=== PATIENT | female | born 1965 | race Caucasian/White ===

== ENCOUNTER 2018-07-07 22:26 | Emergency (ER) | payer OTHER ==
[~2018-07-07] VITALS: Ht 157.5 cm; Wt 78.5 kg
[2018-07-07] MEDS ORDERED: ATENOLOL 50MG T50 M1 PO (22:49)
[2018-07-07] MEDS ORDERED: NOLVADEX20 MG PO (22:49)
[2018-07-07] MEDS ORDERED: METFORMIN HCL500 MG PO (22:50)
[2018-07-07] MEDS ORDERED: PRINIVIL20 MG PO (22:50)
[2018-07-08 01:15] VITALS: BP 113/66
[2018-07-08] MEDS ORDERED: ANTIVERT25 MG PO (01:20)
== END 2018-07-08 01:34 | disposition home or self-care (01) ==
LOC: ER 22:26
DX: R42 Dizziness and giddiness (principal); R11.10 Vomiting, unspecified; I10 Essential (primary) hypertension; E11.9 Type 2 diabetes mellitus without complications